=== PATIENT | male | born 1985 | race Caucasian/White ===

== ENCOUNTER 2021-12-26 18:38 | Emergency (ER) | payer MEDICAID, OTHER ==
[~2021-12-26] VITALS: Ht 167.6 cm; Wt 90.7 kg
[2021-12-26 18:50] VITALS: BP 140/91
--- NOTE | 2021-12-26 20:08 | NUR ---
Dr. Cintron examining patient.
[2021-12-26] MEDS ORDERED: KETOROLAC 60 MG/2 ML VIAL IM ONE (20:10)
[2021-12-26] MEDS ORDERED: PRED20TA5 PO (20:54)
[2021-12-26] MEDS ORDERED: IBUP-2213 PO (20:54)
[2021-12-26] MEDS ORDERED: ONDA8TAB87 PO (20:54)
[2021-12-26 21:11] VITALS: BP 134/87
--- NOTE | 2021-12-26 21:11 | NUR ---
Patient discharged with v/s stable. Written and verbal after care instructions given and explained for chest wall pain and Influenza. Patient alert, oriented and verbalized understanding of instructions. Carried with to car. All questions addressed prior to discharge. ID band removed. Patient advised to follow up with PMD. Rx of Ibuprofen, Zofran and Prednisone given. Patient educated on indication of medication including possible reaction and side effects. Opportunity to ask questions provided and answered.
== END 2021-12-26 21:11 | disposition home or self-care (01) ==
LOC: MED 18:38
DX: R07.89 Other chest pain (principal); M79.10 Myalgia, unspecified site; J34.89 Other specified disorders of nose and nasal sinuses
CPT/HCPCS: 93005; 96372; 99283; J1885